=== PATIENT | female | born 1975 | race Caucasian/White ===

== ENCOUNTER 2017-02-04 02:46 | Emergency (ER) | payer SELFPAY | END 2017-02-04 04:13 | disposition home or self-care (01) | LOC: D.ER 02:46 | DX: F41.9 Anxiety disorder, unspecified (principal); F13.239 Sedative, hypnotic or anxiolytic dependence with withdrawal, unspecified; F17.200 Nicotine dependence, unspecified, uncomplicated; R11.0 Nausea ==

== ENCOUNTER 2017-02-23 01:24 | Emergency (ER) | payer MEDICAID | END 2017-02-23 03:07 | disposition home or self-care (01) | LOC: D.ER 01:24 | DX: F41.9 Anxiety disorder, unspecified (principal); F17.200 Nicotine dependence, unspecified, uncomplicated ==

== ENCOUNTER 2017-07-15 11:32 | Emergency (ER) | payer SELFPAY ==
[2017-07-15 15:08] LABS: BASOPHILS 0.1 % (0-2); EOSINOPHILS 0 % (0-7); HEMATOCRIT 39.6 % (36.0-48.0); HEMOGLOBIN 13.7 g/dL (12-16); IMMATURE GRANULOCYTES 0.2 % (0-5); LYMPHOCYTES 20.9 % (15-50); MCH 29.7 pg (26.0-34.0); MCHC 34.6 g/dL (31.0-37.0); MCV 85.9 fL (80.0-100.0); MEAN PLATELET VOLUME 10.6 fL (7.4-10.4); MONOCYTES 6.2 % (2-11); NEUTROPHILS 72.6 % (40-80); PLATELET COUNT 278 10x3/uL (130-400); RBC 4.61 10x6/uL (4.00-5.40); RDW 12.6 % (11.5-14.5); WBC 8.4 10x3/uL (4.8-10.8)
[2017-07-15 15:24] LABS: ALBUMIN 3.6 g/dL (3.4-5.0); ALKALINE PHOSPHATASE 93 U/L (46-116); ALT (SGPT) 13 U/L (10-68); BILIRUBIN - TOTAL 0.16 mg/dL (0.2-1.3); CALC OSMOLALITY 282 mosm/kg (275-300); CALCIUM 8.8 mg/dL (8.5-10.1); CARBON DIOXIDE 25.9 mmol/L (21.0-32.0); CHLORIDE - SERUM 107 mmol/L (98-107); CREATININE - SERUM 1.2 mg/dL (0.6-1.3); GLUCOSE 97 mg/dL (74-106); POTASSIUM - SERUM 3.4 mmol/L (3.5-5.1); PROTEIN - SERUM 7.1 g/dL (6.4-8.2); SODIUM 143 mmol/L (136-145); UREA NITROGEN 8 mg/dL (7-18); eGFR NON AFRICAN AMERICAN 53 mL/min (90-120)
[2017-07-15 15:35] LABS: CREATINE KINASE 160 UL (21-215)
[2017-07-15 15:37] LABS: TROPONIN-I < 0.017 ng/mL (0.000-0.060)
== END 2017-07-15 15:46 | disposition home or self-care (01) ==
LOC: EDBD 11:32 → D.ER 11:32
PROVIDERS: Family Medicine
DX: F41.9 Anxiety disorder, unspecified (principal)

== ENCOUNTER 2017-12-02 04:46 | Emergency (ER) | payer BC | END 2017-12-02 06:15 | disposition home or self-care (01) | LOC: D.ER 04:46 | DX: F41.9 Anxiety disorder, unspecified (principal) ==

== ENCOUNTER 2017-12-03 22:42 | Emergency (ER) | payer BC ==
[2017-12-04 01:16] LABS: BASOPHILS 0.3 % (0-2); EOSINOPHILS 0.1 % (0-7); HEMATOCRIT 40.8 % (36.0-48.0); HEMOGLOBIN 14.6 g/dL (12-16); LYMPHOCYTES 20.3 % (15-50); MCH 31.1 pg (26.0-34.0); MCHC 35.8 g/dL (31.0-37.0); MCV 86.8 fL (80.0-100.0); MEAN PLATELET VOLUME 10.3 fL (7.4-10.4); MONOCYTES 6.3 % (2-11); PLATELET COUNT 339 10x3/uL (130-400); RDW 12.9 % (11.5-14.5); WBC 7.3 10x3/uL (4.8-10.8)
[2017-12-04 01:22] LABS: UDS - AMPHET NEGATIVE QUAL (NEGATIVE); UDS - BARB NEGATIVE QUAL (NEGATIVE); UDS - BENZO NEGATIVE QUAL (NEGATIVE); UDS - COCAINE NEGATIVE QUAL (NEGATIVE); UDS - OPIATE NEGATIVE QUAL (NEGATIVE); UDS - PCP NEGATIVE QUAL (NEGATIVE); UDS - THC NEGATIVE QUAL (NEGATIVE)
[2017-12-04 01:23] LABS: APPEARANCE HAZY (CLEAR); BILIRUBIN NEGATIVE (NEGATIVE); COLOR YELLOW (YELLOW); GLUCOSE NEGATIVE (NEGATIVE); KETONE NEGATIVE (NEGATIVE); NITRITE POSITIVE (NEGATIVE); PROTEIN NEGATIVE (NEGATIVE); UROBILINOGEN NORMAL (NORMAL)
[2017-12-04 01:24] LABS: BACTERIA MANY /hpf (NONE SEEN); EPITHELIAL CELLS 0-5 /hpf (0-5); RED CELLS - URINE 0-5 /hpf (0-5); WHITE CELLS - URINE 0-5 /hpf (0-5)
[2017-12-04 01:24] LABS: ALBUMIN 3.7 g/dL (3.4-5.0); ALKALINE PHOSPHATASE 141 U/L (46-116); ALT (SGPT) 15 U/L (10-68); CALC OSMOLALITY 278 mosm/kg (275-300); CALCIUM 8.9 mg/dL (8.5-10.1); CARBON DIOXIDE 25.1 mmol/L (21.0-32.0); CHLORIDE - SERUM 106 mmol/L (98-107); CREATININE - SERUM 1.2 mg/dL (0.6-1.3); GLUCOSE 96 mg/dL (74-106); PROTEIN - SERUM 8.1 g/dL (6.4-8.2); SODIUM 141 mmol/L (136-145); UREA NITROGEN 6 mg/dL (7-18); eGFR NON AFRICAN AMERICAN 53 mL/min (90-120)
[2017-12-04 01:25] LABS: POTASSIUM - SERUM 2.9 mmol/L (3.5-5.1)
[2017-12-04 01:32] LABS: PRO BNP 109 pg/mL (0-125); TROPONIN-I < 0.017 ng/mL (0.000-0.060)
== END 2017-12-04 01:51 | disposition home or self-care (01) ==
LOC: D.ER 22:42
PROVIDERS: Family Medicine
DX: F41.9 Anxiety disorder, unspecified (principal)

== ENCOUNTER 2017-12-19 20:20 | Emergency (ER) | payer BC ==
[~2017-12-19] VITALS: Ht 162.6 cm; Wt 75.0 kg
[2017-12-19 20:24] VITALS: BP 142/92; Ht 162.6 cm; Wt 75.0 kg
[2017-12-19] MEDS ORDERED: EFFEXOR XR150 MG (20:26)
[2017-12-19] MEDS ORDERED: KLONOPIN1 MG PO (20:26)
[2017-12-19] MEDS ORDERED: GEODON80 MG (20:26)
[2017-12-19] MEDS ORDERED: INDERAL 40 MG T40 MG PO (20:27)
[2017-12-19] MEDS ORDERED: ADDERALL 15 MG15 MG PO (20:27)
== END 2017-12-19 22:04 | disposition left against medical advice (07) ==
LOC: D.ER 20:20
DX: F41.0 Panic disorder [episodic paroxysmal anxiety] (principal)

== ENCOUNTER 2018-01-13 14:29 | Emergency (ER) | payer SELFPAY ==
[~2018-01-13] VITALS: Ht 162.6 cm; Wt 71.8 kg
[~2018-01-13 14:29] MED LIST: ADDERALL 15 MG15 MG PO; EFFEXOR XR150 MG; GEODON80 MG; INDERAL 40 MG T40 MG PO; KLONOPIN1 MG PO
[2018-01-13 14:33] VITALS: BP 144/104; Ht 162.6 cm; Wt 71.8 kg
== END 2018-01-13 15:25 | disposition left against medical advice (07) ==
LOC: D.ER 14:29
DX: F41.0 Panic disorder [episodic paroxysmal anxiety] (principal)

== ENCOUNTER 2018-02-03 07:15 | Emergency (ER) | payer BC ==
[~2018-02-03] VITALS: Ht 162.6 cm; Wt 72.3 kg
[2018-02-03 07:19] VITALS: Ht 162.6 cm; Wt 72.3 kg
[2018-02-03] MEDS ORDERED: ATIVAN0.5 MG PO (07:20)
[2018-02-03 08:33] VITALS: BP 131/77
== END 2018-02-03 08:34 | disposition home or self-care (01) ==
LOC: D.ER 07:15
DX: F41.9 Anxiety disorder, unspecified (principal)

== ENCOUNTER 2018-02-07 08:52 | Emergency (ER) | payer BC ==
[2018-02-03 07:19] VITALS: BMI 27.3
[~2018-02-07 08:52] MED LIST changes: +ATIVAN0.5 MG PO
== END 2018-02-07 09:07 | disposition left against medical advice (07) ==
LOC: D.ER 08:52
DX: F41.0 Panic disorder [episodic paroxysmal anxiety] (principal)

== ENCOUNTER 2018-03-29 21:28 | Emergency (ER) | payer BC ==
[2018-02-03 07:19] VITALS: BMI 27.3
== END 2018-03-29 21:34 | disposition left against medical advice (07) ==
LOC: D.ER 21:28
DX: F41.0 Panic disorder [episodic paroxysmal anxiety] (principal)

== ENCOUNTER 2018-05-22 22:46 | Emergency (ER) | payer OTHER ==
[~2018-05-22] VITALS: Ht 162.6 cm; Wt 72.7 kg
[2018-05-22 22:54] VITALS: Ht 162.6 cm; Wt 72.7 kg
[2018-05-22] MEDS ORDERED: BUSPAR5 MG PO (22:56)
[2018-05-23 00:43] VITALS: BP 140/87
== END 2018-05-23 00:44 | disposition home or self-care (01) ==
LOC: D.ER 22:46
DX: F41.9 Anxiety disorder, unspecified (principal)

== ENCOUNTER 2018-06-02 10:08 | Emergency (ER) | payer OTHER ==
[~2018-06-02] VITALS: Ht 162.6 cm; Wt 71.8 kg
[~2018-06-02 10:08] MED LIST changes: +BUSPAR5 MG PO
[2018-06-02 10:15] VITALS: Ht 162.6 cm; Wt 71.8 kg
[2018-06-02 11:46] VITALS: BP 155/089
== END 2018-06-02 11:47 | disposition home or self-care (01) ==
LOC: D.ER 10:08
DX: F43.22 Adjustment disorder with anxiety (principal)

== ENCOUNTER 2018-06-11 11:40 | Emergency (ER) | payer SELFPAY ==
[~2018-06-11] VITALS: Ht 162.6 cm; Wt 72.7 kg
[2018-06-11 11:49] VITALS: Ht 162.6 cm; Wt 72.7 kg
[2018-06-11] MEDS ORDERED: KLONOPIN1 MG PO (14:47)
[2018-06-11 15:30] VITALS: BP 147/101
== END 2018-06-11 15:31 | disposition home or self-care (01) ==
LOC: D.ER 11:40
DX: F41.9 Anxiety disorder, unspecified (principal); Z86.59 Personal history of other mental and behavioral disorders

== ENCOUNTER 2019-03-20 03:31 | Emergency (ER) | payer SELFPAY ==
[~2019-03-20] VITALS: Ht 162.6 cm; Wt 89.8 kg
[2019-03-20 03:37] VITALS: Ht 162.6 cm; Wt 89.8 kg
[2019-03-20] MEDS ORDERED: KLONOPIN1 MG PO (03:39)
[2019-03-20 03:50] LABS: BASOPHILS 0.3 % (0-2); EOSINOPHILS 0 % (0-7); HEMATOCRIT 34.2 % (36.0-48.0); HEMOGLOBIN 11.9 g/dL (12-16); IMMATURE GRANULOCYTES 0.4 % (0-5); LYMPHOCYTES 27.5 % (15-50); MCHC 34.8 g/dL (31.0-37.0); MCV 83.2 fL (80.0-100.0); MEAN PLATELET VOLUME 9.6 fL (7.4-10.4); MONOCYTES 7.6 % (2-11); NEUTROPHILS 64.2 % (40-80); PLATELET COUNT 281 10x3/uL (130-400); RBC 4.11 10x6/uL (4.00-5.40); RDW 14.7 % (11.5-14.5); WBC 6.7 10x3/uL (4.8-10.8)
[2019-03-20 04:04] LABS: ALBUMIN 3.3 g/dL (3.4-5.0); ANION GAP 10.5 mmol/L (8-16); BILIRUBIN - TOTAL 0.2 mg/dL (0.2-1.3); CALCIUM 8.2 mg/dL (8.5-10.1); CARBON DIOXIDE 27.1 mmol/L (21.0-32.0); POTASSIUM - SERUM 3.6 mmol/L (3.5-5.1); PROTEIN - SERUM 6.9 g/dL (6.4-8.2)
[2019-03-20 04:15] LABS: THYROID STIMULATING HORMONE 1.34 uIU/mL (0.36-3.74)
[2019-03-20] MEDS ORDERED: COMPAZINE25 MG RC (04:58)
[2019-03-20 05:08] VITALS: BP 141/87
== END 2019-03-20 05:08 | disposition home or self-care (01) ==
LOC: D.ER 03:31
PROVIDERS: Family Medicine
DX: R53.81 Other malaise (principal); F41.9 Anxiety disorder, unspecified; R63.5 Abnormal weight gain

== ENCOUNTER 2019-08-28 21:06 | Emergency (ER) | payer SELFPAY ==
[~2019-08-28] VITALS: Ht 162.6 cm; Wt 91.8 kg
[~2019-08-28 21:06] MED LIST changes: +COMPAZINE25 MG RC
[2019-08-28 21:15] VITALS: BP 135/102; Ht 162.6 cm; Wt 91.8 kg
[2019-08-29] MEDS ORDERED: ZOFRAN4 MG PO (20:00)
[2019-08-29] MEDS ORDERED: BACLOFEN10 MG PO (20:01)
[2019-08-29] MEDS ORDERED: VOLTAREN75 MG PO (20:25)
== END 2019-08-28 22:04 | disposition left against medical advice (07) ==
LOC: D.ER 21:06
DX: M54.9 Dorsalgia, unspecified (principal)

== ENCOUNTER 2019-08-29 19:55 | Emergency (ER) | payer SELFPAY ==
[~2019-08-29] VITALS: Ht 162.6 cm; Wt 91.6 kg
[2019-08-29 19:58] VITALS: Ht 162.6 cm; Wt 91.6 kg
[2019-08-29 20:56] VITALS: BP 160/87
== END 2019-08-29 20:57 | disposition home or self-care (01) ==
LOC: D.ER 19:55
DX: S39.012A Strain of muscle, fascia and tendon of lower back, initial encounter (principal); M25.561 Pain in right knee; X50.9XXA Other and unspecified overexertion or strenuous movements or postures, initial encounter; Y93.89 Activity, other specified; Y92.9 Unspecified place or not applicable; Y99.0 Civilian activity done for income or pay